=== PATIENT | male | born 1980 | race American Indian/Alaskan Native ===

== ENCOUNTER 2019-06-05 11:00 | Emergency (ER) | payer OTHER ==
[2019-06-05 11:21] VITALS: BP 140/90
--- NOTE | 2019-06-05 11:23 | Emergency Department Report ---
Blank Doc - Documentation Documentation: This is a 38-year-old male that presents with flank pain and hemautira. This initial assessment/diagnostic orders/clinical plan/treatment(s) is/are subject to change based on patient's health status, clinical progression and re- assessment by fellow clinical providers in the ED. Further treatment and workup at subsequent clinical providers discretion. Patient/guardians urged not to elope from the ED as their condition may be serious if not clinically assessed and managed. Initial orders include: 1- Patient sent to [facility] for further evaluation and treatment 2- UA 3- labs
[2019-06-05 11:59] LABS: Bilirubin,Urine NEG (Negative); Blood,Urine NEG (Negative); Color,Urine Yellow (Yellow); Mucus,Urine FEW /HPF; Protein,Urine <15 mg/dL mg/dL (Negative)
[2019-06-05 12:11] LABS: Hematocrit 41.4 % (35.5-45.6); Hemoglobin 14.3 gm/dl (11.8-15.2); Mean Corpuscular HGB Conc 35 % (32-34); Mean Corpuscular Volume 84 fl (84-94); Platelet Count 292 K/mm3 (140-440); Red Blood Count 4.95 M/mm3 (3.65-5.03); Red Cell Distribution Width 14.5 % (13.2-15.2)
[2019-06-05 12:31] LABS: BUN/Creatinine Ratio 10; Blood Urea Nitrogen 10 mg/dL (9-20); Calcium 9.5 mg/dL (8.4-10.2); Hemolysis Index 9
--- NOTE | 2019-06-05 13:04 | Emergency Department Report ---
HPI - General Chief Complaint: Abdominal Pain Time Seen by Provider: 06/05/19 11:22 - HPI HPI: 38-year-old -[place] male presents to the emergency department with complaint of some hematuria and right testicular pain. Patient says that he noticed some blood in the urine a few weeks ago but then it went away. This morning, the patient woke up and began having some pain in the right testicle and feels some type of growth there. He urinated and had some gross blood seen. He has a history of kidney stones but denies having this experience with his previous kidney stone. His pain is mostly in the testicle and worsens with movement and palpation. He otherwise denies any other past medical history. He has not taken anything for her symptoms prior to presentation. ED Past Medical Hx - Past Medical History Previous Medical History?: Yes Additional medical history: Hx kidney stones. - Surgical History Past Surgical History?: Yes Additional Surgical History: eardrum replacement - Social History Smoking Status: Current Every Day Smoker Substance Use Type: Alcohol, Marijuana - Medications Home Medications: Home Medications Medication Instructions Recorded Confirmed Last Taken Type Ibuprofen [Motrin 800 MG tab] 800 mg PO Q8HR PRN #30 tablet 09/15/16 Unknown Rx methOCARBAMOL [Robaxin TAB] 500 mg PO BID #15 tab 09/15/16 Unknown Rx HYDROcodone/APAP 5-325 [[place] 1 each PO Q6HR PRN #10 tablet 06/05/19 Unknown Rx 5-325 mg TAB] ED Review of Systems ROS: Stated complaint: POSS KIDNEY STONE Other details as noted in HPI Comment: All other systems reviewed and negative Constitutional: denies: chills, fever Eyes: denies: eye pain, vision change ENT: denies: ear pain, throat pain Respiratory: denies: cough, shortness of breath Cardiovascular: denies: chest pain, palpitations Gastrointestinal: denies: abdominal pain, vomiting Genitourinary: hematuria, testicular pain, testicular mass. denies: dysuria Musculoskeletal: denies: back pain, arthralgia Skin: denies: rash, lesions Neurological: denies: headache, weakness Physical Exam - Physical Exam Vital Signs: Vital Signs 06/05/19 11:19 Temperature 98.3 F Pulse Rate 72 Respiratory 18 Rate Blood Pressure 140/90 O2 Sat by Pulse 100 Oximetry Physical Exam: GENERAL: The patient is well-developed well-nourished. HENT: Normocephalic. Atraumatic. Patient has moist mucous membranes. EYES: Extraocular motions are intact. NECK: Supple. Trachea is midline. CHEST/LUNGS: Clear to auscultation. There is no respiratory distress noted. HEART/CARDIOVASCULAR: Regular. There is no tachycardia. There is no murmur. ABDOMEN: Abdomen is soft, nontender. Patient has normal bowel sounds. There is no abdominal distention. SKIN: Skin is warm and dry. NEURO: The patient is awake, alert, and oriented. The patient is cooperative. The patient has no focal neurologic deficits. The patient has normal speech. MUSCULOSKELETAL: There is no tenderness or deformity. There is no limitation range of motion. There is no evidence of acute injury. : There is some tenderness to palpation to the right testicle. There is some type of a growth or lesion to the posterior portion of the right testicle. ED Course Vital Signs 06/05/19 11:19 Temperature 98.3 F Pulse Rate 72 Respiratory 18 Rate Blood Pressure 140/90 O2 Sat by Pulse 100 Oximetry ED Medical Decision Making - Lab Data Result diagrams: 06/05/19 11:56 06/05/19 11:56 - Radiology Data Radiology results: report reviewed Ultrasound INDICATION: Right testicular pain, growth on testicle FINDINGS: Right testicle measures 4.2 cm in length. The left testicle measures 4.1 cm in length. There are small bilateral hydroceles. Varicocele is identified on the right with Valsalva maneuver. At the site of the palpable abnormality, there is prominence of the tail of the epididymis but no definitive mass is seen. Arterial flow is noted in both testicles. There is a small epididymal cyst on the left. IMPRESSION: Varicocele is identified on the right. There are small bilateral hydroceles. Palpable abnormality corresponds to a prominent tail of the epididymis. No discrete mass lesion is seen. - Medical Decision Making This patient presents to the emergency department with a complaint of some gross hematuria and some pain towards the groin and right testicle. He does not appear to have any abdominal pain or flank pain. However he continues to have testicular pain with movements and with palpation. He complained of some type of a growth that was palpable towards the posterior portion of the testicle. He was sent for an ultrasound which did not show any signs of torsion but showed bilateral mild hydrocele, a right-sided varicocele, and the palpable portion that was a concern for a lesion appears to be a prominent tail of the epididymis or some type of an epididymal cyst. I do not believe this to be the reason for the hematuria, but his urinalysis here showed only 12 white blood cells and only 1 red blood cell. Later during his workup, the patient tells me that he has been having some penile discharge. This was not visible on examination. However, he may have some nonspecific urethritis and I guess potentially this could be the reason for the hematuria as well. He was treated empirically with 2 g of azithromycin secondary to a penicillin allergy that will cover him for gonorrhea and chlamydia. We were going to get a CT scan of the abdomen and pelvis but he has no abdominal, flank or back pain at this time and the patient is no longer willing to wait for any further imaging studies. He was given a prescription for some pain medication and given a referral for urology to follow up regarding his testicular pain, varicocele and hydrocele. He will return to the ER if any worsening of symptoms or any acute distress. His vital signs are stable throughout his ED course. - Differential Diagnosis hernia, epididymitis, urethritis, malignancy, UTI Critical Care Time: No Critical care attestation.: If time is entered above; I have spent that time in minutes in the direct care of this critically ill patient, excluding procedure time. ED Disposition Clinical Impression: Right testicular pain, Urethritis, Right varicocele, Hydrocele, bilateral Hematuria Qualifiers: Hematuria type: unspecified type Qualified Code(s): R31.9 - Hematuria, unspecified Disposition: DC-01 TO HOME OR SELFCARE Is pt being admited?: No Condition: Stable Instructions: Nonspecific Urethritis in Men (ED), Hydrocele (ED), Varicocele (ED), Acute Hematuria (ED), Testicle Pain (ED) Additional Instructions: Please follow up with a primary care physician in the next few days. I'm also giving you a referral for a local urologist, Dr. Albrecht, to follow up regarding your testicular pain, the blood in the urine that you previously saw, and the ultrasound findings of varicocele and hydrocele. You have been given discharge information about all of these conditions. Return to the emergency Department with any worsening of your symptoms or any acute distress. He was given azithromycin as empiric treatment for your penile discharge and suspicion for gonorrhea/chlamydia. Please do not have any sexual relations for at least one week. You have been prescribed a medication that is sedating and therefore should not be taken prior to driving, working, and responsible for children and in no way should be mixed with alcohol of any quantity. Prescriptions: HYDROcodone/APAP 5-325 [[place] 5-325 mg TAB] 1 each PO Q6HR PRN #10 tablet PRN Reason: Pain Referrals: [facility] [Outside] - 2-3 Days DANII ALBRECHT MD [Staff Physician] - 2-3 Days Forms: STI Treatment and Prevention Time of Disposition: 15:44
--- NOTE | 2019-06-05 14:17 | Ultrasound Report ---
Ultrasound INDICATION: Right testicular pain, growth on testicle FINDINGS: Right testicle measures 4.2 cm in length. The left testicle measures 4.1 cm in length. There are small bilateral hydroceles. Varicocele is identified on the right with Valsalva maneuver. At the site of the palpable abnormality, there is prominence of the tail of the epididymis but no def initive mass is seen. Arterial flow is noted in both testicles. There is a small epididymal cyst on the left. IMPRESSION: Varicocele is identified on the right. There are small bilateral hydroceles. Palpable abnormality corresponds to a prominent tail of the epididymis. No discrete mass lesion is se en. Signer Name: John Oates MD Signed: 06/05/2019 2:13 PM Workstation Name: [id number]
[2019-06-05] MEDS ORDERED: ZITHROMAX PO ONE (15:24)
== END 2019-06-05 15:54 | disposition home or self-care (01) ==
LOC: ED 11:00
DX: N50.811 Right testicular pain (principal); N43.3 Hydrocele, unspecified; F17.200 Nicotine dependence, unspecified, uncomplicated; F12.10 Cannabis abuse, uncomplicated; Z79.1 Long term (current) use of non-steroidal anti-inflammatories (NSAID); Z91.030 Bee allergy status; Z88.0 Allergy status to penicillin
CPT/HCPCS: 36415; 80048; 81001; 85027; 87086; 93975; 99284